=== PATIENT | female | born 1995 | race Caucasian/White ===

== ENCOUNTER 2021-11-09 11:55 | Emergency (ER) | payer OTHER, MEDICAID | END 2021-11-09 12:40 | disposition home or self-care (01) | LOC: FB.ED 11:55 | DX: H92.01 Otalgia, right ear (principal); J01.90 Acute sinusitis, unspecified; Z86.16 Personal history of COVID-19; Z72.0 Tobacco use | CPT/HCPCS: 99282; 99283 ==